=== PATIENT | female | born 1965 | race African-American/Black ===

== ENCOUNTER 2020-07-20 20:04 | Emergency (ER) | payer BC ==
[2020-07-20 20:10] VITALS: BP 136/83; PULSE 66; TEMP 98
[2020-07-20] MEDS ORDERED: MAG HYDROX/AL HYDROX/SIMETH 30 ML, HYOSCYAMINE ELIXIR 10 ML, LIDOCAINE VISCOUS 2% 10 ML PO STA ×3 (22:08)
[2020-07-20] MEDS ORDERED: PANTOPRAZOLE 40 MG TABLET PO STA (22:08)
--- NOTE | 2020-07-20 22:28 | XR ---
EXAMINATION TYPE: XR chest 1V DATE OF EXAM: 07/20/2020 COMPARISON: NONE HISTORY: Foreign body in the neck. Food stuck in the esophagus. TECHNIQUE: Single view FINDINGS: Heart and mediastinum are normal. Lungs are clear. Diaphragm is normal. The pulmonary vascu larity is normal. Bony thorax is intact. IMPRESSION: Normal chest.
--- NOTE | 2020-07-20 22:29 | XR ---
EXAMINATION TYPE: XR soft tissue neck DATE OF EXAM: 07/20/2020 COMPARISON: NONE HISTORY: Foreign body sensation. TECHNIQUE: 2 views FINDINGS: Epiglottis is normal. Subglottic trachea appears normal. There is no evidence of radiopaque foreign body. There is spondylotic change in the lower cervical spine with anterior spurring and dis c space narrowing at C5-6 and C6-7. Tonsils and adenoids appear normal. IMPRESSION: Negative cervical soft tissue exam. Spondylotic changes in the lower cervical spine.
--- NOTE | 2020-07-20 22:43 | ED ---
ENT HPI - General Chief complaint: ENT Stated complaint: feels like something in throat. Time Seen by Provider: 07/20/20 21:44 Source: patient Mode of arrival: ambulatory Limitations: no limitations - History of Present Illness Initial comments: Pleasant 54-year-old female presenting today for chief complaint of sensation of foreign body in throat. Patient states Saturday she is eating cake and she felt like she it swelled something hard. Patietn states that it seemed to get better for the evening, and morning on Saturday but later she had the sensation appear and was more consistent. Denies regurgitation, she is able to eat and drink. 90s eating food with bones, fish ect. Denies sore throat. Denies fevers, chest pain, or crepitus to palpation of skin. Patient has no additional complaints upon arrival she appears well nontoxic in no acute distress. Pt has been taking ibuprofen and abx for a dental infection last week. - Related Data Allergies Allergy/AdvReac Type Severity Reaction Status Date / Time Penicillins Allergy Unknown Verified 07/20/20 20:11 Childhood shellfish derived [Shellfish] Allergy Swelling Verified 07/20/20 20:11 Review of Systems ROS Statement: Those systems with pertinent positive or pertinent negative responses have been documented in the HPI. ROS Other: All systems not noted in ROS Statement are negative. Past Medical History Past Medical History: Asthma, Hypertension History of Any Multi-Drug Resistant Organisms: None Reported Past Surgical History: Hysterectomy, Tubal Ligation Additional Past Surgical History / Comment(s): left breast biopsy, Past Psychological History: No Psychological Hx Reported Smoking Status: Never smoker Past Alcohol Use History: None Reported Past Drug Use History: None Reported General Exam - General Exam Comments Initial Comments: General: The patient is awake and alert, in no distress, and does not appear acutely ill. Eye: Pupils are equal, round and reactive to light, extra-ocular movements are intact. No nystagmus. There is normal conjunctiva bilaterally. No signs of icterus. Ears, nose, mouth and throat: There are moist mucous membranes and no oral lesions. Oral pharynx not erythematous. Neck: The neck is supple, there is no tenderness or JVD. No crepitus or patient of anterior neck or chest Cardiovascular: There is a regular rate and rhythm. No murmur, rub or gallop is appreciated. Respiratory: Lungs are clear to auscultation, respirations are non-labored, breath sounds are equal. No wheezes, stridor, rales, or rhonchi. Musculoskeletal: Normal ROM, no tenderness. Strength 5/5. Sensation intact. Pulses equal bilaterally 2+. Neurological: A&O x 3. CN II-XII intact, There are no obvious motor or sensory deficits. Coordination appears grossly intact. Speech is normal. Skin: Skin is warm and dry and no rashes or lesions are noted. Psychiatric: Cooperative, appropriate mood & affect, normal judgment. Limitations: no limitations Course Vital Signs 07/20/20 07/20/20 20:07 23:25 Temperature 98 F Pulse Rate 66 Respiratory 18 16 Rate Blood Pressure 136/83 O2 Sat by Pulse 97 Oximetry - Reevaluation(s) Reevaluation #1: Drinks GI cocktail as well as water and soda wtihout regurgitation/coughing or difficulty. Medical Decision Making - Medical Decision Making plain films WNL. No free air. Patient can eat and drink. Recent abx use. Cannot r/o pill esophagitis. Discussed case with Dr. Hunter who recommended d/c with GI f/u and protonix. Patient is agreeable to care plan and discharge. Disposition Clinical Impression: Sensation of foreign body in esophagus Disposition: HOME SELF-CARE Condition: Good Instructions (If sedation given, give patient instructions): Corrosive Esophagitis (ED), Esophagitis (ED) Additional Instructions: Please use medication as discussed. Please follow-up with family doctor in the next 2 days, recommend GI follow-up in 1-2 days, call Dr Stevens tomorrow to schedule the appointment Please return to emergency room if the symptoms increase or worsen or for any other concerns. Is patient prescribed a controlled substance at d/c from ED?: No Referrals: Nonstaff,Physician [Primary Care Provider] - 1-2 days Aniya Stevens MD [STAFF PHYSICIAN] - 1-2 days Time of Disposition: 22:43
[2020-07-20 23:28] VITALS: RESP 16
== END 2020-07-20 23:25 | disposition home or self-care (01) ==
LOC: EC 20:04
DX: R09.89 Other specified symptoms and signs involving the circulatory and respiratory systems (principal); J45.909 Unspecified asthma, uncomplicated; I10 Essential (primary) hypertension; Z90.710 Acquired absence of both cervix and uterus; Z98.51 Tubal ligation status
CPT/HCPCS: 70360; 71045; 99283

== ENCOUNTER 2020-07-27 09:50 | Day surgery (SDC) | payer BC ==
[2020-07-27 10:29] VITALS: TEMP 98.1
[2020-07-27] MEDS ORDERED: LIDOCAINE 1% (10MG/ML) FOR IV START INTRADERMA ONE (10:47)
[2020-07-27] MEDS ORDERED: LACTATED RINGERS 1,000 ML IV ONE ×2 (10:47)
[2020-07-27] MEDS ORDERED: PROPOFOL 10 MG/ML 20 ML VIAL IV ONE (10:58)
[2020-07-27] MEDS ORDERED: LIDOCAINE 1% INJ 10MG/ML (20 ML MDV) ONE (10:58)
[2020-07-27] MEDS ORDERED: GLYCOPYRROLATE 0.2 MG/ML 2 ML VIAL ONE (10:58)
--- NOTE | 2020-07-27 11:15 | P.PCN ---
Date of Procedure: 07/27/20 Procedure(s) Performed: BRIEF HISTORY: Patient is a 54-year-old, pleasant, -[place] female scheduled for an upper endoscopy as a part of evaluation of dysphagia for the last 10 days' duration. She went to the emergency room last 3 and was diagnosed with pill-induced esophagitis and was sent home. She is scheduled for an upper endoscopy because of persistent symptoms.. PROCEDURE PERFORMED: Esophagogastroduodenoscopy with dilation and biopsy . PREOPERATIVE DIAGNOSIS: Dysphagia for the last 10 days duration IV sedation per anesthesia. PROCEDURE: After informed consent was obtained, the patient was brought into the endoscopy unit. IV sedation was administered by Anesthesia under continuous monitoring. Initially the Olympus GIF-140 video endoscope was inserted into the mouth. Esophagus intubated without any difficulty. It was gradually advanced into the stomach and duodenum and carefully examined. The bulb and the second part of the duodenum appeared normal. The scope at this time was withdrawn to the stomach, adequately insufflated with air, and upon careful examination, mucosa of the antrum, body, cardia and the fundus appeared normal. The scope was then withdrawn into the esophagus. small sliding Hiatal hernia noted. The GE junction was located at 39 cm from the incisors. There was a widely patent distal esophageal Schatzki's ring identified and there were linear erosions in the distal esophagus consistent with LA grade B reflux esophagitis. At this time the Schatzki's ring was dilated using 18-20 mm balloon in a sequential fashion for 90 seconds. The esophagus appeared normal. Biopsies were done from the distal esophagusand the patient tolerated the procedure well. IMPRESSION: 1. Distal esophageal Schatzki's ring status post balloon dilation using 18-20 mm TTS balloon as described above 2. Small hiatal hernia and LA grade B reflux esophagitis RECOMMENDATIONS: The findings of this examination were discussed with the patient as well as a family. She was advised to follow with the biopsy results. Will give her a trial of Prilosec 20 mg daily for 8 weeks. She'll be seen in office in 2 months
[2020-07-27 11:18] VITALS: RESP 16
[2020-07-27 11:31] VITALS: BP 1245/84; PULSE 67
== END 2020-07-27 11:44 | disposition home or self-care (01) ==
LOC: ORWHC2ENDO 09:50
PROVIDERS: ATTEND Internal Medicine Gastroenterology
DX: K22.2 Esophageal obstruction (principal); K21.00 Gastro-esophageal reflux disease with esophagitis, without bleeding; K44.9 Diaphragmatic hernia without obstruction or gangrene; K22.10 Ulcer of esophagus without bleeding; I10 Essential (primary) hypertension; J45.909 Unspecified asthma, uncomplicated; Z79.899 Other long term (current) drug therapy; Z79.51 Long term (current) use of inhaled steroids; Z79.1 Long term (current) use of non-steroidal anti-inflammatories (NSAID); Z88.0 Allergy status to penicillin; Z91.013 Allergy to seafood
CPT/HCPCS: 43239; 43249; J2001; J2704; C1726; 88305

== ENCOUNTER → 2020-07-30 | Outpatient (CLI) | payer BC | END | disposition home or self-care (01) | LOC: LABMAIN 19:23 | PROVIDERS: ATTEND Physician Assistant | DX: U07.1 COVID-19 (principal) | CPT/HCPCS: 87635 ==

== ENCOUNTER 2023-11-14 14:51 | Emergency (ER) | payer BC ==
--- NOTE | 2023-11-14 15:54 | ED ---
Headache HPI - General Source: RN notes reviewed Mode of arrival: ambulatory Limitations: no limitations <Lee Ann Gant - Last Filed: 11/14/23 20:08> <Ford Robison - Last Filed: 11/15/23 02:28> - General Chief Complaint: Headache Stated Complaint: pressure in head Time Seen by Provider: 11/14/23 15:52 - History of Present Illness Initial Comments: 58-year-old female with history of hypertension presenting with headache x 1 week. States the headache came on suddenly 1 week ago and is described as tension in the top of her head, worse on the left side. She does not have a history of migraines or headaches. She does report this is the worst headache of her life. Denies head trauma/injury, vision changes, neck pain, nausea, vomiting URI symptoms, sensitivity to light or sound. She has been taking ove u-ein-[id number] medications such as 800 mg ibuprofen with no relief. (Lee Ann Gant) - Related Data Home Medications Medication Instructions Recorded Confirmed Albuterol Inhaler [Ventolin Hfa 2 puff INHALATION RT-QID PRN 07/27/20 11/14/23 Inhaler] Losartan [Cozaar] 50 mg PO DAILY 07/27/20 11/14/23 amLODIPine [Norvasc] 10 mg PO DAILY 07/27/20 11/14/23 Ascorbic Acid [Vitamin C] 500 mg PO DAILY 11/14/23 11/14/23 Cholecalciferol (Vitamin D3) 75 mcg PO DAILY 11/14/23 11/14/23 [Vitamin D3 (3000 Iu)] Loratadine [Claritin] 10 mg PO DAILY PRN 11/14/23 11/14/23 Multivitamins, Thera [Multivitamin 1 tab PO MOFR 11/14/23 11/14/23 (formulary)] Allergies Allergy/AdvReac Type Severity Reaction Status Date / Time Penicillins Allergy Unknown Verified 11/14/23 19:33 Childhood shellfish derived [Shellfish] Allergy Anaphylaxis/Swelling Verified 11/14/23 19:33 all over Review of Systems ROS Other: All systems not noted in ROS Statement are negative. <Lee Ann Gant - Last Filed: 11/14/23 20:08> ROS Other: All systems not noted in ROS Statement are negative. <Ford Robison - Last Filed: 11/15/23 02:28> ROS Statement: Those systems with pertinent positive or pertinent negative responses have been documented in the HPI. Past Medical History Past Medical History: Asthma, Hypertension Additional Past Medical History / Comment(s): "fEELING LIKE HAS SOMETHING IN HER THROAT"- HAD A XRAY OF CHEST AND NECK AND NOTHING WAS SEEN History of Any Multi-Drug Resistant Organisms: None Reported Past Surgical History: Hysterectomy, Tubal Ligation Additional Past Surgical History / Comment(s): left breast biopsy, Past Anesthesia/Blood Transfusion Reactions: No Reported Reaction Past Psychological History: No Psychological Hx Reported Smoking Status: Never smoker Past Alcohol Use History: None Reported Past Drug Use History: None Reported - Past Family History Brother(s) Family Medical History: Cancer Additional Family Medical History / Comment(s): BROTHER OF LUNG CANCER Mother Additional Family Medical History / Comment(s): MOM MULTIPLE MYELOMA Sister(s) Family Medical History: AFIB, Diabetes Mellitus, Thyroid Disorder Additional Family Medical History / Comment(s): PT SISTER HAS LUPUS WELL <Lee Ann Gant - Last Filed: 11/14/23 20:08> General Exam Limitations: no limitations General appearance: alert, in no apparent distress Head exam: Present: atraumatic, normocephalic, normal inspection Eye exam: Present: normal appearance, PERRL, EOMI. Absent: scleral icterus, conjunctival injection, periorbital swelling ENT exam: Present: normal exam, mucous membranes moist Neck exam: Present: normal inspection. Absent: tenderness, meningismus, lymphadenopathy Respiratory exam: Present: normal lung sounds bilaterally. Absent: respiratory distress, wheezes, rales, rhonchi, stridor Cardiovascular Exam: Present: regular rate, normal rhythm, normal heart sounds. Absent: systolic murmur, diastolic murmur, rubs, gallop, clicks Extremities exam: Present: normal inspection, full ROM, normal capillary refill. Absent: tenderness, pedal edema, joint swelling, calf tenderness Neurological exam: Present: alert, oriented X3, CN II-XII intact Psychiatric exam: Present: normal affect, normal mood Skin exam: Present: warm, dry, intact, normal color. Absent: rash <Lee Ann Gant - Last Filed: 11/14/23 20:08> Course Vital Signs 11/14/23 11/14/23 11/14/23 15:12 16:50 18:48 Temperature 98.3 F 98 F 98 F Pulse Rate 60 61 65 Respiratory 16 16 18 Rate Blood Pressure 138/85 138/80 130/75 O2 Sat by Pulse 97 98 98 Oximetry 11/14/23 22:35 Temperature 97.9 F Pulse Rate 62 Respiratory 18 Rate Blood Pressure 136/80 O2 Sat by Pulse 97 Oximetry Medical Decision Making - Lab Data Result diagrams: 11/14/23 19:29 11/14/23 19:29 <Lee Ann Gant - Last Filed: 11/14/23 20:08> - Lab Data Result diagrams: 11/14/23 19:29 11/14/23 19:29 <Ford Robison - Last Filed: 11/15/23 02:28> - Medical Decision Making Was pt. sent in by a medical professional or institution (Dr. PA, STREET LIGHT SERVICER HELPER, urgent care, hospital, or correction...) When possible be specific @ -No Did you speak to anyone other than the patient for history (EMS, parent, family, police, friend...)? What history was obtained from this source @ -No Did you review nursing and triage notes (agree or disagree)? Why? @ -I reviewed and agree with nursing and triage notes Were old charts reviewed (outside hosp., previous admission, EMS record, old EKG, old radiological studies, urgent care reports/EKG's, correction records)? Report findings @ -No old charts were reviewed Differential Diagnosis (chest pain, altered mental status, abdominal pain women, abdominal pain men, vaginal bleeding, weakness, fever, dyspnea, syncope, headache, dizziness, GI bleed, back pain, seizure, CVA, palpatations, mental health, musculoskeletal)? @ -Differential Headache: Migraine, tension, cluster, carbon monoxide, central venous thrombosis, pension karma temporal arteritis, acute closure glaucoma, intercranial hemorrhage, m astoiditis, sinusitis, head injury, this is not meant to be an all-inclusive list. EKG interpreted by me (3pts min.). @ -None X-rays interpreted by me (1pt min.). @ -None done CT interpreted by me (1pt min.). @ -CT of brain without contrast reveals no acute intracranial process. CT angio [place] pending. U/S interpreted by me (1pt. min.). @ -None done What testing was considered but not performed or refused? (CT, X-rays, U/S, labs)? Why? @ -None What meds were considered but not given or refused? Why? @ -Patient declined IV pain medication Did you discuss the management of the patient with other professionals (professionals i.e. , PA, STREET LIGHT SERVICER HELPER, lab, RT, psych nurse, social science manager, sql server consultant, teacher, veterinary medical officer, telephonic nurse case manager)? Give summary @ -No Was smoking cessation discussed for >3mins.? @ -No Was critical care preformed (if so, how long)? @ -No Were there social determinants of health that impacted care today? How? (Homelessness, low income, unemployed, alcoholism, drug addiction, transportation, low edu. Level, literacy, decrease access to med. care, custodial, rehab)? @ -No Was there de-escalation of care discussed even if they declined (Discuss DNR or withdrawal of care, Hospice)? DNR status @ -No What co-morbidities impacted this encounter? (DM, HTN, Smoking, COPD, CAD, Cancer, CVA, ARF, Chemo, Hep., AIDS, mental health diagnosis, sleep apnea, morbid obesity)? @ -None Was patient admitted / discharged? Hospital course, mention meds given and route, prescriptions, significant lab abnormalities, going to OR and other pertinent info. @ -Patient was seen and evaluated for headache x 1 week. Patient states that headache came on suddenly and is the worst headache of her life. No history of migraines. Neuro examination is unremarkable. Patient declines IV at this time and is given oral steroid and Benadryl. CT of brain without contrast is negative for acute process. CT angio [place] pending. Case signed out to Colin Robison at 8:09pm pending CTA [place]. (Lee Ann Gant) This is a 58-year-old female presenting with chief complaint of headache x 1 week. Patient was signed out to me by Lee Ann Gant PA-C pending CT results. Radiologist Dr. No called me and informed me after reviewing the CTA that there was evidence of acute findings on CT brain without contrast as well. On CT there is a crescentic low-density area left parietal occipital region also present on CT brain. This has some local mass effect on the adjacent brain. Maximum depth is 1.1 cm. No hyperdense collection is within this. Patient's hemoglobin is reported at 14. No midline shift is evident. No effacement of the lateral ventricles evident. Findings could be compatible with an old left subdural hematoma. There are no comparisons available at this location. I discussed this case with my attending Dr. Albright I spoke with neurosurgeon on-call Dr. Garibay at [facility] who accepted transfer. (Ford Robison) - Lab Data Lab Results 11/14/23 11/14/23 Range/Units 19:29 19:29 WBC 5.5 (3.8-10.6) k/uL RBC 5.55 H (3.80-5.40) m/uL Hgb 14.0 (11.4-16.0) gm/dL Hct 41.9 (34.0-46.0) % MCV 75.4 L (80.0-100.0) fL MCH 25.2 (25.0-35.0) pg MCHC 33.4 (31.0-37.0) g/dL RDW 13.8 (11.5-15.5) % Plt Count 304 (150-450) k/uL MPV 8.0 Neutrophils % 53 % Lymphocytes % 37 % Monocytes % 6 % Eosinophils % 2 % Basophils % 0 % Neutrophils # 2.9 (1.3-7.7) k/uL Lymphocytes # 2.0 (1.0-4.8) k/uL Monocytes # 0.3 (0-1.0) k/uL Eosinophils # 0.1 (0-0.7) k/uL Basophils # 0.0 (0-0.2) k/uL Microcytosis Slight Sodium 140 (137-145) mmol/L Potassium 4.1 (3.5-5.1) mmol/L Chloride 106 (98-107) mmol/L Carbon Dioxide 28 (22-30) mmol/L Anion Gap 6 mmol/L BUN 12 (7-17) mg/dL Creatinine 0.86 (0.52-1.04) mg/dL Est GFR (CKD-EPI)AfAm 88 (>60 ml/min/1.73 sqM) Est GFR (CKD-EPI)NonAf 76 (>60 ml/min/1.73 sqM) Glucose 83 (74-99) mg/dL Calcium 9.7 (8.4-10.2) mg/dL Total Bilirubin 1.2 (0.2-1.3) mg/dL AST 22 (14-36) U/L ALT 11 (4-34) U/L Alkaline Phosphatase 100 (38-126) U/L Total Protein 7.9 (6.3-8.2) g/dL Albumin 4.4 (3.5-5.0) g/dL Disposition <Lee Ann Gant - Last Filed: 11/14/23 20:08> Time of Disposition: 22:22 - Out of Hospital Transfer - Req. Specs Out of Hospital Transfer - Requested Specifics: Other Emergency Center ([facility]) <Ford Robison - Last Filed: 11/15/23 02:28> Clinical Impression: Chronic subdural hematoma Disposition: TRANSFER TO PSYCH HOSP/UNIT Condition: Fair Referrals: Nonstaff,Physician [Primary Care Provider] - 1-2 days
--- NOTE | 2023-11-14 17:06 | CT ---
EXAMINATION TYPE: CT brain wo con DATE OF EXAM: 11/14/2023 COMPARISON: None INDICATION: pt c/o pressure headache. DLP: 1125.4 mGycm, Automated exposure control for dose reduction was used. CONTRAST: None CT of the brain is performed utilizing 3 mm thick sections through the posterior fossa and 3 mm thick sections through the remaining calvarium. Study is performed within 24 hours of arrival to the hosp ital. No abnormal hyperdensity is present to suggest an acute intracranial hemorrhage. No mass lesion is evident. No acute infarcts are evident. Ventricles and sulci are appropriate for the patient age. Paranasal sinuses and mastoid air cells within the [id number] are clear. IMPRESSION: 1. No acute intracranial process. Follow-up MRI can be performed as clinically indicated.
[2023-11-14] MEDS: dexAMETHasone 2 MG TAB PO STA (17:51)
[2023-11-14] MEDS: diphenhydrAMINE 50 MG CAP PO STA (17:51)
[2023-11-14 18:49] VITALS: RESP 18
[2023-11-14] MEDS: SODIUM CHLORIDE 0.9% 1,000 ML IV STA (19:31)
[2023-11-14 19:39] LABS: Basophils % (A) 0 %; Eosinophils # (A) 0.1 k/uL (0-0.7); Eosinophils % (A) 2 %; HCT 41.9 % (34.0-46.0); Lymphocytes % (A) 37 %; MCH 25.2 pg (25.0-35.0); MCHC 33.4 g/dL (31.0-37.0); MCV 75.4 fL (80.0-100.0); Microcytosis Slight; Monocytes # (A) 0.3 k/uL (0-1.0); Monocytes % (A) 6 %; Neutrophils # (A) 2.9 k/uL (1.3-7.7); Neutrophils % (A) 53 %; Platelet Count 304 k/uL (150-450); RBC 5.55 m/uL (3.80-5.40); RDW 13.8 % (11.5-15.5); WBC 5.5 k/uL (3.8-10.6)
[2023-11-14 19:57] LABS: ALT 11 U/L (4-34); AST 22 U/L (14-36); African American GFR (CKD) 88 (>60 ml/min/1.73 sqM); Albumin 4.4 g/dL (3.5-5.0); Alkaline Phosphatase 100 U/L (38-126); Anion Gap 6 mmol/L; Blood Urea Nitrogen 12 mg/dL (7-17); Calcium 9.7 mg/dL (8.4-10.2); Carbon Dioxide 28 mmol/L (22-30); Chloride 106 mmol/L (98-107); Glucose 83 mg/dL (74-99); Non-African American GFR(CKD) 76 (>60 ml/min/1.73 sqM); Potassium 4.1 mmol/L (3.5-5.1); Sodium 140 mmol/L (137-145); Total Bilirubin 1.2 mg/dL (0.2-1.3); Total Protein 7.9 g/dL (6.3-8.2)
--- NOTE | 2023-11-14 20:47 | CT ---
EXAMINATION TYPE: CT angio COW [place] of [place] DATE OF EXAM: 11/14/2023 HISTORY: Headache x 1 week, posterior and left side COMPARISON: CT DLP: 607.4 mGycm. Automated Exposure Control for Dose Reduction was Utilized. TECHNIQUE: CTA scan of the neck is performed with IV Contrast, patient injected with 65 cc mL of Iso liborio 370, axial images are obtained, coronal and sagittal reformatted images are reviewed. Three-D rec onstructed images are created on an independent workstation and reviewed. Source images are reviewed . FINDINGS: Cervical of [place]: Vertebral basilar system appears normal. Posterior cerebral vasculature is unrema rkable. Internal carotid arteries bifurcate normally into A1 and M1 segments. A2 segments are normal. The anterior communicating artery is patent. The right posterior communicating artery is patent. The left posterior communicating artery is absent. Other: Chronic appearing left subdural hematoma remains present. Patient's hemoglobin is reported as 14. IMPRESSION: 1. Normal [place] of [place]. 2. Chronic appearing left parietal occipital subdural hematoma. NASCET criteria was used in interpretation of this exam?
[2023-11-14 22:45] VITALS: BP 136/80; PULSE 62; TEMP 97.9
== END 2023-11-14 23:49 ==
LOC: EC 14:51
DX: I62.03 Nontraumatic chronic subdural hemorrhage (principal); Z88.0 Allergy status to penicillin; Z91.013 Allergy to seafood
CPT/HCPCS: 36415; 80053; 85025; 70496; 70450; 99285; 96360; 96361 ×2; J8540; Q9967